=== PATIENT | male | born 1995 | race Caucasian/White ===

== ENCOUNTER 2018-01-14 22:44 | Emergency (ER) | payer OTHER, MEDICAID ==
[2018-01-14] MEDS ORDERED: MUPIROCIN 2% OINTMENT 22 GM TP ONE (23:19)
--- NOTE | 2018-01-14 23:23 | ER Document Report ---
HPI - HPI Patient complains to provider of: Left buttocks abscess Onset: Other - 5 days Onset/Duration: Better Pain Level: 3 Context: 22-year-old male had an ingrown hair or abscess and it worked on it at home and it drained pus and it is a lot better today but they wanted it to be checked. No fever or chills. No history of pilonidal cyst. No history of MRSA Associated Symptoms: None Exacerbated by: Walking Relieved by: Denies Similar symptoms previously: No Recently seen / treated by doctor: No - ROS ROS below otherwise negative: Yes Systems Reviewed and Negative: Yes All other systems reviewed and negative Past Medical History - General Information source: Patient - Social History Smoking Status: Never Smoker Lives with: Spouse/Significant other Family History: None - Medical History Medical History: Negative Surgical Hx: Negative Vertical Provider Document - CONSTITUTIONAL Agree With Documented VS: Yes Exam Limitations: No Limitations - INFECTION CONTROL TRAVEL OUTSIDE OF THE [place] IN LAST 30 DAYS: No - NEURO Level of Consciousness: Alert - DERM Integumentary: Abscess - healing drained left gluteal crest abscess with minimal indurated tissue remainging. no pus Course - Vital Signs Vital signs: Temp Pulse Resp BP Pulse Ox 98.1 F 68 16 127/61 H 100 01/14/18 22:57 01/14/18 22:57 01/14/18 22:57 01/14/18 22:57 01/14/18 22:57 Discharge - Discharge Clinical Impression: healing left buttocks abscess Condition: Good Disposition: HOME, SELF-CARE Instructions: Abscess ([facility]), Bactroban Ointment ([facility]), Warm Packs ([facility]) Additional Instructions: warm compress bactroban small amount 3 times per day for 3 days Tylenol for discomfort Forms: Return to Work
[2018-01-14 23:31] VITALS: BP 119/65
== END 2018-01-14 23:33 | disposition home or self-care (01) ==
LOC: ER 22:44
DX: L02.31 Cutaneous abscess of buttock (principal)
CPT/HCPCS: 99283; J3490

== ENCOUNTER 2018-09-14 13:42 | Emergency (ER) | payer OTHER, MEDICAID ==
[2018-09-14] MEDS ORDERED: KETOROLAC TROMETHAMINE 60 MG/2 ML SDV IM ONE (14:52)
[2018-09-14] MEDS ORDERED: NYSTATIN 500000 UNIT/5 ML UDCUP PO ONE (15:18)
[2018-09-14] MEDS ORDERED: VALACYCLOVIR HCL 500 MG TABLET PO ONE (15:18)
[2018-09-14] MEDS ORDERED: TETRACAINE HCL 0.5% OPH SOLN 4 ML OS ONE (15:19)
--- NOTE | 2018-09-14 15:25 | ER Document Report ---
ED General - General Chief Complaint: Drainage from Eye Stated Complaint: MOUTH PAIN Time Seen by Provider: 09/14/18 14:36 Primary Care Provider: KACI MARTINEZ MD [ACTIVE STAFF] - Follow up as needed KAVON LARES MD [ACTIVE STAFF] - Follow up as needed Mode of Arrival: Ambulatory Information source: Patient Notes: 23-year-old male presented to ED for complaint of pain and swelling to his left eye cheek and multiple herpes sores inside his mouth and on his lips. He states he has had the cold sores for about 2 weeks but the last 3 days he has had pain to the cheek and left eye. He states he has a long history of herpes but is never had his eye becomes red and inflamed. Patient is alert oriented respirations regular and unlabored speaking in full sentences walks with even steady gait. TRAVEL OUTSIDE OF THE [place] IN LAST 30 DAYS: No - HPI Onset: Other - See above Onset/Duration: Gradual Quality of pain: Achy, Burning, Sharp Severity: Moderate Pain Level: 4 Associated symptoms: Other - Herpes sores in the mouth, redness swelling and pain to the left eye tenderness to the left cheek Exacerbated by: Food Relieved by: Denies Similar symptoms previously: Yes Recently seen / treated by doctor: No - Related Data Allergies/Adverse Reactions: Penicillins Allergy (Verified 09/14/18 13:43) Past Medical History - General Information source: Patient - Social History Smoking Status: Former Smoker Frequency of alcohol use: Social Drug Abuse: None Lives with: Spouse/Significant other Family History: CAD, Hyperlipidemia Patient has suicidal ideation: No Patient has homicidal ideation: No - Past Medical History Cardiac Medical History: Reports: None Pulmonary Medical History: Reports: None EENT Medical History: Reports: None Neurological Medical History: Reports: None Endocrine Medical History: Reports: None Renal/ Medical History: Reports: None Malignancy Medical History: Reports None GI Medical History: Reports: None Musculoskeletal Medical History: Reports Hx Musculoskeletal Trauma - Fracture left wrist Skin Medical History: Reports None Psychiatric Medical History: Reports: None Traumatic Medical History: Reports: Hx Fractures - Left wrist Infectious Medical History: Reports: None Surgical Hx: Negative Past Surgical History: Reports: None Review of Systems - Review of Systems EENT: Eye pain, Eye discharge, Mouth pain - Herpes lesions to the lips and in his mouth, Mouth swelling, Other - Pain to the left cheek Cardiovascular: No symptoms reported Respiratory: No symptoms reported Gastrointestinal: No symptoms reported Genitourinary: No symptoms reported Male Genitourinary: No symptoms reported Musculoskeletal: No symptoms reported Skin: Lesions - Lips herpes Hematologic/Lymphatic: No symptoms reported Neurological/Psychological: No symptoms reported -: Yes All other systems reviewed and negative Physical Exam - Vital signs Vitals: Temp Pulse Resp BP Pulse Ox 98.1 F 80 18 133/69 H 97 09/14/18 13:43 09/14/18 13:43 09/14/18 13:43 09/14/18 13:43 09/14/18 13:43 Interpretation: Normal - General General appearance: Appears well, Alert - HEENT Head: Normocephalic, Atraumatic Conjunctiva: Injected, Purulent discharge Pupils: PERRL Ears: Normal External canal: Normal Tympanic membrane: Normal Sinus: Normal Nasal: Normal Mouth/Lips: Lesions Mucous membranes: Normal Pharynx: Normal Neck: Normal - Respiratory Respiratory status: No respiratory distress Chest status: Nontender Breath sounds: Normal Chest palpation: Normal - Cardiovascular Rhythm: Regular Heart sounds: Normal auscultation Murmur: No - Abdominal Inspection: Normal Distension: No distension Bowel sounds: Normal Tenderness: Nontender Organomegaly: No organomegaly - Back Back: Normal, Nontender - Extremities General upper extremity: Normal inspection, Nontender, Normal color, Normal ROM, Normal temperature General lower extremity: Normal inspection, Nontender, Normal color, Normal ROM, Normal temperature, Normal weight bearing. No: Farhad's sign - Neurological Neuro grossly intact: Yes Cognition: Normal Orientation: AAOx4 [place] Coma Scale Eye Opening: Spontaneous Michelle Coma Scale Verbal: Oriented Michelle Coma Scale Motor: Obeys Commands [place] Coma Scale Total: 15 Speech: Normal Motor strength normal: LUE, RUE, LLE, RLE Sensory: Normal - Psychological Associated symptoms: Normal affect, Normal mood - Skin Skin Temperature: Warm Skin Moisture: Dry Skin Color: Normal Course - Re-evaluation Re-evalutation: 09/14/18 21:[address] Sawant. He recommended treating with antiviral and antifungal and have follow-up with ophthalmology. These medications were already ordered and prescriptions were sent with patient as well as instructions to follow-up with ophthalmology as soon as possible. - Vital Signs Vital signs: Temp Pulse Resp BP Pulse Ox 98.1 F 80 15 130/69 H 97 09/14/18 15:54 09/14/18 15:54 09/14/18 15:54 09/14/18 15:54 09/14/18 13:43 Discharge - Discharge Clinical Impression: Herpes simplex, Left eye pain Condition: Stable Disposition: HOME, SELF-CARE Instructions: Family Physicians / Practices Additional Instructions: Herpes Simplex You have been diagnosed as having a herpes virus infection. The herpes ("cold sore") virus usually infects the areas around the mouth. However, it can cause infection on any skin surface. It's particularly dangerous if infection occurs in the eye. On the initial infection, herpes blisters erupt over a large area. There is usually fever and aching. This infection takes about 14 days to resolve. After the initial infection, herpes sores can erupt on small areas (usually the lips), then heal in about a week. Sunburn, fever, local irritation, or even emotions can provoke a "fever blister" attack of herpes. Initial herpes infections can be treated with medication if severe. Subsequent attacks are usually given only local care to reduce symptoms; however, the physician may decide to prescribe anti-viral medication if your case warrants it. Call the doctor if you are worsening in any way. Valtrex Valtrex is used to treat infections caused by the Herpes family of viruses. It's available as capsules or ointment. Valtrex is most effective if started at the first sign of the viral outbreak. It can decrease the severity and duration of symptoms. However, it doesn't eliminate the virus from the body completely. If you're prone to repeated outbreaks of herpes, you'll continue to have attacks. Apply ointment with a disposable glove or finger-cot to avoid spreading the virus with your finger. If pills have been prescribed, take them for the full recommended course. Occasionally, mild nausea or headaches may occur. Call the doctor if you develop wheezing, itching, rash, shortness of breath, or lightheadedness. I have given you Magic mouthwash which is to reduce the pain and discomfort in your mouth. Part of your pain is from yeast infection. The Magic mouthwash has nystatin in it which will help with this discomfort. I have also given you Valtrex which is for the viral aspect of the pain in your mouth. Please complete the Valtrex. You need to follow-up with the primary care doctor as well as an painter touch up. Ibuprofen Ibuprofen is an excellent, safe drug for pain control. In addition, it has potent antiinflammatory effects which are beneficial, especially in the treatment of injuries, arthritis, or tendonitis. It's best to take ibuprofen with food. Persons with ulcer disease or allergy to aspirin should notify their physician of this before taking ibuprofen. Take the medication exactly as prescribed. Don't take additional doses unless instructed to do so by your doctor. If you develop wheezing, shortness of breath, hives, faintness, stomach pain, vomiting, or dark black stools, return for re-evaluation at once. FOLLOW-UP CARE: If you have been referred to a physician for follow-up care, call the physicians office for an appointment as you were instructed or within the next two days. If you experience worsening or a significant change in your symptoms, notify the physician immediately or return to the Emergency Department at any time for re-evaluation. Prescriptions: Nystatin/Dexameth/Diphen [Magic Mouthwash ([facility] Formula) Susp] 5 ml PO QID #120 ml Valacyclovir HCl [Valtrex] 1,000 mg PO BID #14 tablet Forms: Elevated Blood Pressure, Return to Work Referrals: KACI MARTINEZ MD [ACTIVE STAFF] - Follow up as needed KAVON LARES MD [ACTIVE STAFF] - Follow up as needed
[2018-09-14 15:55] VITALS: BP 130/69
== END 2018-09-14 15:54 | disposition home or self-care (01) ==
LOC: ER 13:42
DX: B00.1 Herpesviral vesicular dermatitis (principal); B00.89 Other herpesviral infection; H57.12 Ocular pain, left eye; H57.89 Other specified disorders of eye and adnexa; R51 Headache; Z87.891 Personal history of nicotine dependence
CPT/HCPCS: 99282; J3490

== ENCOUNTER 2018-09-16 18:23 | Emergency (ER) | payer OTHER, MEDICAID ==
[2018-09-16 18:57] VITALS: BP 127/71
== END 2018-09-16 19:55 | disposition left against medical advice (07) ==
LOC: ER 18:23
DX: Z53.21 Procedure and treatment not carried out due to patient leaving prior to being seen by health care provider (principal)